=== PATIENT | male | born 1985 | race Caucasian/White ===

== ENCOUNTER 2016-06-25 17:10 | Emergency (ER) | payer OTHER ==
--- NOTE | 2016-06-25 17:44 | ED CLINICAL REPORT ---
Clinical Report - Physicians/Mid Levels [facility] [address] [place] [address] 06/25/2016 17:12 Patient: AFSHIN LUCIA Time Seen: 17:21. Arrived- By private vehicle. Historian- patient. HISTORY OF PRESENT ILLNESS Location of injuries- right knee. Chief Complaint: Right knee pain. The injury occurred many months ago. 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 Occurred at work. The patient complains of moderate pain. No blow to the head, neck pain, loss of consciousness or seizure. Not dazed. REVIEW OF SYSTEMS The patient complains of pain on weight bearing. No chest pain, difficulty breathing, headache, abdominal pain or urinary problems. PAST HISTORY Chronic right knee pain (has had MRI and ortho referral). Medications: TraMADol HCl Oral. Cyclobenzaprine HCl Oral. Allergies: Ibuprofen. Ketorolac. Methocarbamol. SOCIAL HISTORY Attends school. Is a local resident. ADDITIONAL NOTES The nursing notes have been reviewed. PHYSICAL EXAM Vital Signs: 06/25/2016 17:20 BP: 123/100. HR: 84. RR: 18. O2 saturation: 96%. Temp: 98.2 F. Appearance: Alert. Oriented X3. No acute distress. Eyes: EOM intact. CVS: Heart sounds normal. Pulses normal. Respiratory: Breath sounds normal. Chest nontender. Abdomen: No visible injury. Back: No tenderness. ROM normal. Skin: Skin intact. Skin warm and dry. Normal skin color. Normal skin turgor. Extremities: Right knee: mild tenderness located in the lateral joint line and lateral collateral ligament. Neurovascular intact distally. No ligamentous laxity present. No erythema, swelling or deformity. No limitation in ROM. Neuro: Oriented X 3. No motor deficit. No sensory deficit. PROGRESS AND PROCEDURES Course of Care: Has had MRI and has upcoming ortho appt in 3 days. CLINICAL IMPRESSION Tear of the right lateral meniscus (with possible tendon cyst / Clay's cyst). INSTRUCTIONS Apply ice. Wear elastic wrap as directed until better (knee splint). Elevate affected areas above chest level. You may walk and bear weight as tolerated. Do not work for three days. Warnings: CONTROLLED SUBSTANCE WARNINGS. GENERAL WARNINGS: Return or contact your physician immediately if your condition worsens or changes unexpectedly, if not improving as expected, or if other problems arise. Prescription Medications: Tramadol 50 mg tablets: take 1-2 orally every 6 hours as needed for pain. Dispense twenty (20). No refills. Flexeril 10 mg: Take 1 orally every 8 hours as needed for muscle spasm. Dispense twenty (20). No refills. Substitution is permissible. OTC Medications: Acetaminophen (available over the counter): take according to label instructions. Follow-up: Follow up with your doctor [facility] in about three days. Follow up with an orthopedic surgeon- as recommended by your primary care physician. (Electronically signed by Devaughn Scott DO 06/26/2016 7:25)
--- NOTE | 2016-06-25 17:44 | ED NURSING NOTES ---
Clinical Report - Nurses [facility] [address] [place] [address] 06/25/2016 17:12 Patient: AFSHIN LUCIA TRIAGE Triage time 17:21 Jun 25 2016. Acuity: LEVEL 4. Chief Complaint: (knee pain). --17:25 David Huang R.N. 17:20 06/25/16. BP: 123/100. HR: 84. RR: 18. O2 saturation: 96%. Temp: 98.2 F. Pain level now 8/10. --17:25 David Hunag R.N. Weight: 86.1 kg stated. Height/Length: 66 inches Per Patient. BMI: 30.7. --17:24 David Huang R.N. Allergies Methocarbamol. --17:23 David Huang R.N. Ketorolac. --17:23 David Huang R.N. Ibuprofen. --17:23 David Huang R.N. History Arrived by private vehicle. ( Pt states " I have 2 cysts on my R knee, today i have a lot of movement in my knee it is vibrating " Knee is intact pt is able ambulated, was wearing a knee brace prior to arrival). This started today. SOCIAL HX: Occasional alcohol use. No drug use. --17:25 David Huang R.N. Interventions ID and allergy band on patient. To treatment room. --17:25 David Huang R.N. PHYSICAL ASSESSMENT ( Pt reports pain to r knee no obvious injury no, bruising or swelling). GENERAL / NEURO / PSYCH: Alert. Oriented X 4. Appears in no acute distress. HEENT: Pupils equal, round and reactive to light. No facial asymmetry noted. Mucous membranes are pink. RESPIRATORY: Respirations not labored. Chest nontender. Breath sounds within normal limits. CVS: Capillary refill less than 2 seconds. Pulses within normal limits. GI / : Abdomen soft and nontender. EXTREMITIES: Pain with weight bearing. Normal gait. SKIN: Skin is warm and dry. --17:26 David Huang R.N. NURSING PROGRESS NOTES Oxygen administered. Monitoring of patient in place. Call light placed in reach. Side rails up x 1. Bed placed in lowest position. --17:26 David Huang R.N. DISPOSITION / DISCHARGE Departure time: 18:07 Jun 25 2016. No learning barriers present. Discharge instructions provided and reviewed with the patient. Reviewed medication(s) side effects information. Patient verbalized understanding. Written instructions provided in [place]. The patient was discharged by the physician. He was discharged home and accompanied by senior backup administrator. He left the Emergency Department ambulatory and via ambulance. Cell Builder driving. --18:07 David Huang R.N. 18:06 06/25/16. BP: 119/76. HR: 81. RR: 18. O2 saturation: 100%. Temp: 98.1 F. Pain level now 6/10. --18:07 David Huang R.N. Locked/Released at 06/30/2016 16:16 by David Huang R.N.
--- NOTE | 2016-06-25 17:44 | ED CLINICAL REPORT ---
Clinical Report - Physicians/Mid Levels [facility] [address] [place] [place] [address] 06/25/2016 17:12 Patient: AFSHIN LUCIA Time Seen: 17:21. Arrived- By private vehicle. Historian- patient. HISTORY OF PRESENT ILLNESS Location of injuries- right knee. Chief Complaint: Right knee pain. The injury occurred many months ago. 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 Occurred at work. The patient complains of moderate pain. No blow to the head, neck pain, loss of consciousness or seizure. Not dazed. REVIEW OF SYSTEMS The patient complains of pain on weight bearing. No chest pain, difficulty breathing, headache, abdominal pain or urinary problems. PAST HISTORY Chronic right knee pain (has had MRI and ortho referral). Medications: TraMADol HCl Oral. Cyclobenzaprine HCl Oral. Allergies: Ibuprofen. Ketorolac. Methocarbamol. SOCIAL HISTORY Attends school. Is a local resident. ADDITIONAL NOTES The nursing notes have been reviewed. PHYSICAL EXAM Vital Signs: 06/25/2016 17:20 BP: 123/100. HR: 84. RR: 18. O2 saturation: 96%. Temp: 98.2 F. Appearance: Alert. Oriented X3. No acute distress. Eyes: EOM intact. CVS: Heart sounds normal. Pulses normal. Respiratory: Breath sounds normal. Chest nontender. Abdomen: No visible injury. Back: No tenderness. ROM normal. Skin: Skin intact. Skin warm and dry. Normal skin color. Normal skin turgor. Extremities: Right knee: mild tenderness located in the lateral joint line and lateral collateral ligament. Neurovascular intact distally. No ligamentous laxity present. No erythema, swelling or deformity. No limitation in ROM. Neuro: Oriented X 3. No motor deficit. No sensory deficit. PROGRESS AND PROCEDURES Course of Care: Has had MRI and has upcoming ortho appt in 3 days. CLINICAL IMPRESSION Tear of the right lateral meniscus (with possible tendon cyst / Clay's cyst). INSTRUCTIONS Apply ice. Wear elastic wrap as directed until better (knee splint). Elevate affected areas above chest level. You may walk and bear weight as tolerated. Do not work for three days. Warnings: CONTROLLED SUBSTANCE WARNINGS. GENERAL WARNINGS: Return or contact your physician immediately if your condition worsens or changes unexpectedly, if not improving as expected, or if other problems arise. Prescription Medications: Tramadol 50 mg tablets: take 1-2 orally every 6 hours as needed for pain. Dispense twenty (20). No refills. Flexeril 10 mg: Take 1 orally every 8 hours as needed for muscle spasm. Dispense twenty (20). No refills. Substitution is permissible. OTC Medications: Acetaminophen (available over the counter): take according to label instructions. Follow-up: Follow up with your doctor [facility] in about three days. Follow up with an orthopedic surgeon- as recommended by your primary care physician. (Electronically signed by Devaughn Scott DO 06/26/2016 7:25)
--- NOTE | 2016-06-25 17:44 | ED NURSING NOTES ---
Clinical Report - Nurses [facility] [address] [place] [address] 06/25/2016 17:12 Patient: AFSHIN LUCIA TRIAGE Triage time 17:21 Jun 25 2016. Acuity: LEVEL 4. Chief Complaint: (knee pain). --17:25 David Huang R.N. 17:20 06/25/16. BP: 123/100. HR: 84. RR: 18. O2 saturation: 96%. Temp: 98.2 F. Pain level now 8/10. --17:25 David Huang R.N. Weight: 86.1 kg stated. Height/Length: 66 inches Per Patient. BMI: 30.7. --17:24 David Huang R.N. Allergies Methocarbamol. --17:23 David Huang R.N. Ketorolac. --17:23 David Huang R.N. Ibuprofen. --17:23 David Huang R.N. History Arrived by private vehicle. ( Pt states " I have 2 cysts on my R knee, today i have a lot of movement in my knee it is vibrating " Knee is intact pt is able ambulated, was wearing a knee brace prior to arrival). This started today. SOCIAL HX: Occasional alcohol use. No drug use. --17:25 David Huang R.N. Interventions ID and allergy band on patient. To treatment room. --17:25 David Huang R.N. PHYSICAL ASSESSMENT ( Pt reports pain to r knee no obvious injury no, bruising or swelling). GENERAL / NEURO / PSYCH: Alert. Oriented X 4. Appears in no acute distress. HEENT: Pupils equal, round and reactive to light. No facial asymmetry noted. Mucous membranes are pink. RESPIRATORY: Respirations not labored. Chest nontender. Breath sounds within normal limits. CVS: Capillary refill less than 2 seconds. Pulses within normal limits. GI / : Abdomen soft and nontender. EXTREMITIES: Pain with weight bearing. Normal gait. SKIN: Skin is warm and dry. --17:26 David Huang R.N. NURSING PROGRESS NOTES Oxygen administered. Monitoring of patient in place. Call light placed in reach. Side rails up x 1. Bed placed in lowest position. --17:26 David Huang R.N. DISPOSITION / DISCHARGE Departure time: 18:07 Jun 25 2016. No learning barriers present. Discharge instructions provided and reviewed with the patient. Reviewed medication(s) side effects information. Patient verbalized understanding. Written instructions provided in [place]. The patient was discharged by the physician. He was discharged home and accompanied by kiln burner. He left the Emergency Department ambulatory and via ambulance. Distillation Operator driving. --18:07 David Huang R.N. 18:06 06/25/16. BP: 119/76. HR: 81. RR: 18. O2 saturation: 100%. Temp: 98.1 F. Pain level now 6/10. --18:07 David Huang R.N. Locked/Released at 06/30/2016 16:16 by David Huang R.N.
--- NOTE | 2016-06-30 16:16 | ED DISCHARGE INSTRUCTIONS ---
Patient: AFSHIN LUCIA General Instructions [facility] VisitID: [id number] [address] [place] [address] 31y, M Registration Date/Time: 06/25/2016 Tear of the right lateral meniscus. INSTRUCTIONS Apply ice. Wear elastic wrap as directed until better (knee splint). Elevate affected areas above chest level. You may walk and bear weight as tolerated. Do not work for three days. Warnings: CONTROLLED SUBSTANCE WARNINGS. GENERAL WARNINGS: Return or contact your physician immediately if your condition worsens or changes unexpectedly, if not improving as expected, or if other problems arise. Prescription Medications: Tramadol 50 mg tablets: take 1-2 orally every 6 hours as needed for pain. Dispense twenty (20). No refills. Flexeril 10 mg: Take 1 orally every 8 hours as needed for muscle spasm. Dispense twenty (20). No refills. Substitution is permissible. OTC Medications: Acetaminophen (available over the counter): take according to label instructions. Follow-up: Follow up with your doctor [facility] in about three days. Follow up with an orthopedic surgeon- as recommended by your primary care physician. ADDITIONAL INFORMATION Knee Pain, Possible Torn Meniscus Themeniscusis a tough cartilage pad that cushions the inside of the knee joint. It serves as a shock absorber and spreads the weight of your body evenly across the knee joint. This prevents excess wear and tear to the bones of that joint. The most common causes of meniscal tears are due to injury (especially related to sports) and degenerative disease (as occurs with aging). A meniscus tear commonly occurs during a twisting injury when the knee is bent. This causes pain, swelling, reduced movement of the knee and difficulty walking. There may be popping, clicking, joint locking or inability to completely straighten the knee. Ligaments of the knee may also be injured. Initial diagnosis of a torn meniscus is by physical exam and x-rays. In the case of an acute injury, the knee may be too painful to examine fully. A more accurate exam can be performed after the initial swelling goes down. An MRI (magnetic image scan) may be ordered to make a final diagnosis. Initial treatment of a suspected meniscal injury is with ice and rest and preventing movement of the knee. A splint or Velcro knee immobilizer may be applied to protect the joint. Depending on the severity of the injury, surgery may be required. A cartilage injury may take 4-12 weeks to heal depending on the severity. Home Care: Stay off the injured leg as much as possible until you can walk on it without pain. If you have a lot of pain with walking, crutches or a walker may be prescribed. (These can be rented or purchased at many pharmacies and surgical or orthopedic supply stores). Follow your doctor's advice regarding when to begin bearing weight on that leg. Keep your leg elevated to reduce pain and swelling. When sleeping, place a pillow under the injured leg. When sitting, support the injured leg so it is level with your waist. This is very important during the first 48 hours. Apply an ice pack (ice cubes in a plastic bag, wrapped in a towel) over the injured area for 20 minutes every 1-2 hours the first day. You can place the ice pack directly over the splint. If a Velcro knee immobilizer was applied, you can open this to apply the ice pack directly to the knee. Continue with ice packs 3-4 times a day for the next two days, then as needed for the relief of pain and swelling. You may use acetaminophen (Tylenol) or ibuprofen (Motrin, Advil) to control pain, unless another pain medicine was prescribed. [NOTE: If you have chronic liver or kidney disease or ever had a stomach ulcer, talk with your doctor before using these medicines.] If you were given a splint, keep it completely dry at all times. Bathe with your splint out of the water, protected with a large plastic bag, rubber-banded at the top end. If a fiberglass splint gets wet, you can dry it with a hair-dryer. If you have a Velcro knee immobilizer, you can remove this to bathe, unless told otherwise. Check with your doctor before returning to sports or full work duties. Follow Up with your doctor, or as advised, within 1-2 weeks for another exam. Further testing may be required to assess the extent of your injury. [NOTE: If X-rays were taken, they will be reviewed by a radiologist. You will be notified of any new findings that may affect your care.] Get Prompt Medical Attention if any of the following occur: Toes or foot becomes swollen, cold, blue, numb or tingly Pain or swelling increases over the knee or calf Warmth or redness appears over the knee or calf Shortness of breath or chest pain Fever over 100.4F (38.0C) Sprain, Knee A sprain is an injury to the ligaments or capsule that holds a joint together. There are no broken bones. Most sprains take three to six weeks to heal. If the ligament is completely torn (severe sprain), it can take months to recover from. Most knee sprains are treated with a splint, knee immobilizer or elastic wrap for support. Severe sprains may require surgery. Home care The following guidelines will help you care for your injury at home: Stay off the injured leg as much as possible until you can walk on it without pain. If you have a lot of pain with walking, crutches or a walker may be prescribed. (These can be rented or purchased at many pharmacies and surgical or orthopedic supply stores). Follow your doctor's advice regarding when to begin bearing weight on that leg. Keep your leg elevated to reduce pain and swelling. When sleeping, place a pillow under the injured leg. When sitting, support the injured leg so it is level with your waist. This is very important during the first 48 hours. Apply an ice pack (ice cubes in a plastic bag, wrapped in a towel) over the injured area for 20 minutes every 12 hours the first day. You can place the ice pack directly over the splint. If a Velcro knee immobilizer was applied, you can open this to apply the ice pack directly to the knee. Continue with ice packs 34 times a day for the next two days, then as needed for the relief of pain and swelling. You may use acetaminophen or ibuprofen to control pain, unless another pain medicine was prescribed. If you have chronic liver or kidney disease or ever had a stomach ulcer or GI bleeding, talk with your doctor before using these medicines. If you were given a splint, keep it completely dry at all times. Bathe with your splint out of the water, protected with a large plastic bag, rubber-banded at the top end. If a fiberglass splint gets wet, you can dry it with a hair-dryer. If you have a Velcro knee immobilizer, you can remove this to bathe, unless told otherwise. Follow-up care Follow up with your doctor as advised. Any X-rays you had today dont show any broken bones, breaks, or fractures. Sometimes fractures dont show up on the first X-ray. Bruises and sprains can sometimes hurt as much as a fracture. These injuries can take time to heal completely. If your symptoms dont improve or they get worse, talk with your doctor. You may need a repeat X-ray. When to seek medical care Get prompt medical attention if any of the following occur: The plaster cast or splint becomes wet or soft The fiberglass cast or splint remains wet for more than 24 hours Pain or swelling increases Toes become cold, blue, numb or tingly Tramadol Hydrochloride Oral tablet What is this medicine? TRAMADOL (TRA ma dole) is a pain reliever. It is used to treat moderate to severe pain in adults. How should I use this medicine? Take this medicine by mouth with a full glass of water. Follow the directions on the prescription label. If the medicine upsets your stomach, take it with food or milk. Do not take more medicine than you are told to take. Talk to your studio manager regarding the use of this medicine in children. Special care may be needed. What side effects may I notice from receiving this medicine? Side effects that you should report to your doctor or health memory care program director as soon as possible: allergic reactions like skin rash, itching or hives, swelling of the face, lips, or tongue breathing difficulties, wheezing confusion itching light headedness or fainting spells redness, blistering, peeling or loosening of the skin, including inside the mouth seizures Side effects that usually do not require medical attention (report to your doctor or health memory care program director if they continue or are bothersome): constipation dizziness drowsiness headache nausea, vomiting What may interact with this medicine? Do not take this medicine with any of the following medications: MAOIs like Carbex, Eldepryl, Marplan, Nardil, and Parnate This medicine may also interact with the following medications: alcohol or medicines that contain alcohol antihistamines benzodiazepines bupropion carbamazepine or oxcarbazepine clozapine cyclobenzaprine digoxin furazolidone linezolid medicines for depression, anxiety, or psychotic disturbances medicines for migraine headache like almotriptan, eletriptan, frovatriptan, naratriptan, rizatriptan, sumatriptan, zolmitriptan medicines for pain like pentazocine, buprenorphine, butorphanol, meperidine, nalbuphine, and propoxyphene medicines for sleep muscle relaxants naltrexone phenobarbital phenothiazines like perphenazine, thioridazine, chlorpromazine, mesoridazine, fluphenazine, prochlorperazine, promazine, and trifluoperazine procarbazine warfarin What if I miss a dose? If you miss a dose, take it as soon as you can. If it is almost time for your next dose, take only that dose. Do not take double or extra doses. Where should I keep my medicine? Keep out of the reach of children. Store at room temperature between 15 and 30 degrees C (59 and 86 degrees F). Keep container tightly closed. Throw away any unused medicine after the expiration date. What should I tell my health care provider before I take this medicine? They need to know if you have any of these conditions: brain tumor depression drug abuse or addiction head injury if you frequently drink alcohol containing drinks kidney disease or trouble passing urine liver disease lung disease, asthma, or breathing problems seizures or epilepsy suicidal thoughts, plans, or attempt; a previous suicide attempt by you or a family member an unusual or allergic reaction to tramadol, codeine, other medicines, foods, dyes, or preservatives or trying to get breast-feeding What should I watch for while using this medicine? Tell your doctor or health memory care program director if your pain does not go away, if it gets worse, or if you have new or a different type of pain. You may develop tolerance to the medicine. Tolerance means that you will need a higher dose of the medicine for pain relief. Tolerance is normal and is expected if you take this medicine for a long time. Do not suddenly stop taking your medicine because you may develop a severe reaction. Your body becomes used to the medicine. This does NOT mean you are addicted. Addiction is a behavior related to getting and using a drug for a non-medical reason. If you have pain, you have a medical reason to take pain medicine. Your doctor will tell you how much medicine to take. If your doctor wants you to stop the medicine, the dose will be slowly lowered over time to avoid any side effects. You may get drowsy or dizzy. Do not drive, use machinery, or do anything that needs mental alertness until you know how this medicine affects you. Do not stand or sit up quickly, especially if you are an older patient. This reduces the risk of dizzy or fainting spells. Alcohol can increase or decrease the effects of this medicine. Avoid alcoholic drinks. You may have constipation. Try to have a bowel movement at least every 2 to 3 days. If you do not have a bowel movement for 3 days, call your doctor or health memory care program director. Your mouth may get dry. Chewing sugarless gum or sucking hard candy, and drinking plenty of water may help. Contact your doctor if the problem does not go away or is severe. Cyclobenzaprine Hydrochloride Oral tablet What is this medicine? CYCLOBENZAPRINE (rebecca mccormickkay JULIÁN johnson) is a muscle relaxer. It is used to treat muscle pain, spasms, and stiffness. How should I use this medicine? Take this medicine by mouth with a glass of water. Follow the directions on the prescription label. If this medicine upsets your stomach, take it with food or milk. Take your medicine at regular intervals. Do not take it more often than directed. Talk to your studio manager regarding the use of this medicine in children. Special care may be needed. What side effects may I notice from receiving this medicine? Side effects that you should report to your doctor or health memory care program director as soon as possible: allergic reactions like skin rash, itching or hives, swelling of the face, lips, or tongue chest pain fast heartbeat hallucinations seizures vomiting Side effects that usually do not require medical attention (report to your doctor or health memory care program director if they continue or are bothersome): headache What may interact with this medicine? Do not take this medicine with any of the following medications: cisapride droperidol flecainide grepafloxacin halofantrine levomethadyl MAOIs like Carbex, Eldepryl, Marplan, Nardil, and Parnate nilotinib pimozide probucol sertindole This medicine may also interact with the following medications: abarelix alcohol contrast dyes dolasetron guanethidine medicines for cancer medicines for depression, anxiety, or psychotic disturbances medicines to treat an irregular heartbeat medicines used for sleep or numbness during surgery or procedure methadone octreotide ondansetron palonosetron phenothiazines like chlorpromazine, mesoridazine, prochlorperazine, thioridazine some medicines for infection like alfuzosin, chloroquine, clarithromycin, levofloxacin, mefloquine, pentamidine, troleandomycin tramadol vardenafil What if I miss a dose? If you miss a dose, take it as soon as you can. If it is almost time for your next dose, take only that dose. Do not take double or extra doses. Where should I keep my medicine? Keep out of the reach of children. Store at room temperature between 15 and 30 degrees C (59 and 86 degrees F). Keep container tightly closed. Throw away any unused medicine after the expiration date. What should I tell my health care provider before I take this medicine? They need to know if you have any of these conditions: heart disease, irregular heartbeat, or previous heart attack liver disease thyroid problem an unusual or allergic reaction to cyclobenzaprine, tricyclic antidepressants, lactose, other medicines, foods, dyes, or preservatives or trying to get breast-feeding What should I watch for while using this medicine? Check with your doctor or health memory care program director if your condition does not improve within 1 to 3 weeks. You may get drowsy or dizzy when you first start taking the medicine or change doses. Do not drive, use machinery, or do anything that may be dangerous until you know how the medicine affects you. Stand or sit up slowly. Your mouth may get dry. Drinking water, chewing sugarless gum, or sucking on hard candy may help. Acetaminophen Oral tablet What is this medicine? ACETAMINOPHEN (a set a KANDICE cynthia fen) is a pain reliever. It is used to treat mild pain and fever. How should I use this medicine? Take this medicine by mouth with a glass of water. Follow the directions on the package or prescription label. Take your medicine at regular intervals. Do not take your medicine more often than directed. Talk to your studio manager regarding the use of this medicine in children. While this drug may be prescribed for children as young as 6 years of age for selected conditions, precautions do apply. What side effects may I notice from receiving this medicine? Side effects that you should report to your doctor or health memory care program director as soon as possible: allergic reactions like skin rash, itching or hives, swelling of the face, lips, or tongue breathing problems fever or sore throat redness, blistering, peeling or loosening of the skin, including inside the mouth trouble passing urine or change in the amount of urine unusual bleeding or bruising unusually weak or tired yellowing of the eyes or skin Side effects that usually do not require medical attention (report to your doctor or health memory care program director if they continue or are bothersome): headache nausea, stomach upset What may interact with this medicine? alcohol imatinib isoniazid other medicines with acetaminophen What if I miss a dose? If you miss a dose, take it as soon as you can. If it is almost time for your next dose, take only that dose. Do not take double or extra doses. Where should I keep my medicine? Keep out of reach of children. Store at room temperature between 20 and 25 degrees C (68 and 77 degrees F). Protect from moisture and heat. Throw away any unused medicine after the expiration date. What should I tell my health care provider before I take this medicine? They need to know if you have any of these conditions: if you frequently drink alcohol containing drinks liver disease an unusual or allergic reaction to acetaminophen, other medicines, foods, dyes or preservatives or trying to get breast-feeding What should I watch for while using this medicine? Tell your doctor or health memory care program director if the pain lasts more than 10 days (5 days for children), if it gets worse, or if there is a new or different kind of pain. Also, check with your doctor if a fever lasts for more than 3 days. Do not take other medicines that contain acetaminophen with this medicine. Always read labels carefully. If you have questions, ask your doctor or pharmacist. If you take too much acetaminophen get medical help right away. Too much acetaminophen can be very dangerous and cause liver damage. Even if you do not have symptoms, it is important to get help right away. You have been given the following additional information: Knee Pain, Meniscus Injury (Possible) Knee Sprain Tramadol Hydrochloride Oral tablet Cyclobenzaprine Hydrochloride Oral tablet Acetaminophen Oral tablet You may walk and bear weight as tolerated. Do not work for three days. (Electronically signed by Devaughn Scott DO 06/26/2016 7:25)
--- NOTE | 2016-06-30 16:16 | ED MAR SUMMARY ---
..... Medication Administration Record [facility] [address], [place] [id number] Patient: AFSHIN LUCIA Visit ID: [id number] 31y, M Weight: 86.1 kg Height/Length: 66 in BMI: 30.7 ALLERGIES: Ibuprofen, Ketorolac, Methocarbamol
--- NOTE | 2016-06-30 16:16 | ED MAR SUMMARY ---
..... Medication Administration Record [facility] [address], [place] [id number] Patient: AFSHIN LUCIA Visit ID: [id number] 31y, M Weight: 86.1 kg Height/Length: 66 in BMI: 30.7 ALLERGIES: Ibuprofen, Ketorolac, Methocarbamol
--- NOTE | 2016-06-30 16:16 | ED MED RECONCILIATION SUMMARY ---
Patient: AFSHIN LUCIA Medication Reconciliation Report [facility] VisitID: [id number] [address] [place] [address] 31y, M Registration Date/Time: 06/25/2016 Weight: 86.1 kg Height/Length: 66 in. BMI: 30.7 ALLERGIES: Ibuprofen, Ketorolac, Methocarbamol The patient's Home Medications are listed below: THE FOLLOWING MEDICATIONS NEED TO BE RECONCILED: Cyclobenzaprine HCl Oral TraMADol HCl Oral The source(s) of the original Home Medication information: Not obtained. The following Medications were given to the patient in the Emergency Department: None. The following Medications were prescribed to the patient: Acetaminophen (available over the counter): take according to label instructions. -- Devaughn Scott DO Tramadol 50 mg tablets: take 1-2 orally every 6 hours as needed for pain. Dispense twenty (20). No refills. -- Devaughn Scott DO Flexeril 10 mg: Take 1 orally every 8 hours as needed for muscle spasm. Dispense twenty (20). No refills. Substitution is permissible. -- Devaughn Scott DO
--- NOTE | 2016-06-30 16:16 | ED MED RECONCILIATION SUMMARY ---
Patient: AFSHIN LUCIA Medication Reconciliation Report [facility] VisitID: [id number] [address] [place] [address] 31y, M Registration Date/Time: 06/25/2016 Weight: 86.1 kg Height/Length: 66 in. BMI: 30.7 ALLERGIES: Ibuprofen, Ketorolac, Methocarbamol The patient's Home Medications are listed below: THE FOLLOWING MEDICATIONS NEED TO BE RECONCILED: Cyclobenzaprine HCl Oral TraMADol HCl Oral The source(s) of the original Home Medication information: Not obtained. The following Medications were given to the patient in the Emergency Department: None. The following Medications were prescribed to the patient: Acetaminophen (available over the counter): take according to label instructions. -- Devaughn Scott DO Tramadol 50 mg tablets: take 1-2 orally every 6 hours as needed for pain. Dispense twenty (20). No refills. -- Devaughn Scott DO Flexeril 10 mg: Take 1 orally every 8 hours as needed for muscle spasm. Dispense twenty (20). No refills. Substitution is permissible. -- Devaughn Scott DO
== END 2016-06-25 18:04 | disposition home or self-care (01) ==
LOC: ED SRH 17:10
DX: S83.281A Other tear of lateral meniscus, current injury, right knee, initial encounter (principal); X58.XXXA Exposure to other specified factors, initial encounter; Y93.9 Activity, unspecified; Y92.9 Unspecified place or not applicable; Y99.8 Other external cause status; Z88.8 Allergy status to other drugs, medicaments and biological substances

== ENCOUNTER 2016-07-28 16:35 | Emergency (ER) | payer OTHER ==
--- NOTE | 2016-07-28 17:16 | ED CLINICAL REPORT ---
Clinical Report - Physicians/Mid Levels [facility] [address] [place] [address] 07/28/2016 16:36 Patient: AFSHIN LUCIA Time Seen: 16:38; initial patient contact. Arrived- By private vehicle. Historian- patient. HISTORY OF PRESENT ILLNESS Chief Complaint: Injury to right leg. The injury happened just prior to arrival[place] The patient sustained a laceration from broken glass (slipped while hiking). Patient is experiencing mild pain. Patient denies injury to the head or neck. REVIEW OF SYSTEMS The patient sustained a laceration. No swelling, tingling or suspected foreign body. All systems otherwise negative, except as recorded above. PAST HISTORY ( Knee Injury. PTSD. SURGERIES: Back Surgery. Wrist surgery.). Tetanus immunization status is up-to-date. ADDITIONAL NOTES The nursing notes have been reviewed with agreement regarding the chief complaint, PMH and patient medications and allergies. PHYSICAL EXAM Vital Signs: 07/28/2016 16:43 BP: 182/103. HR: 95. RR: 18. O2 saturation: 98%. Pain level now: 8/10. Have been reviewed. Hypertensive. Heart rate normal. Respiratory rate normal. Temperature normal. Oxygen saturation normal. Appearance: Alert. Oriented X3. Anxious. Skin: Skin warm and dry. Extremities: Right leg: mild tenderness and multiple small abrasions. Neurovascular intact distally. (No active bleeding). Extremities otherwise negative. Neuro, Vascular and Tendons: Vascular status intact. Sensation intact. Motor intact. Tendon function intact. Gait: Normal gait. Neuro: Oriented X 3. No motor deficit. No sensory deficit. PROGRESS AND PROCEDURES Disposition: Discharged home in good and improved condition. Condition: good. CLINICAL IMPRESSION Multiple superficial abrasions to the right lower leg.Treatment of abrasion not delayed. No infection or abrasion with foreign body present. INSTRUCTIONS Protect wound and keep wound area clean. Change dressing twice daily. You may wash wounds briefly, then dry. Apply bacitracin twice daily. Your Current Medications: CONTINUE TAKING THE FOLLOWING MEDICATIONS: Gabapentin Oral : 500 mg 2x a day, prn. Tylenol Oral. Valium Oral : 5 mg daily, prn. Prescription Medications: Zofran (orally disintegrating tablets) 4 mg: take 1 orally every 6 hours as needed for nausea and vomiting. Dispense ten (10). No refill. Substitution is permissible. Follow-up: Follow up with your doctor in about two days if not better. Call for an appointment. Screening today revealed the patient's blood pressure to be in the hypertensive range. The patient should follow up with a primary care provider for blood pressure management. (Electronically signed by Reji Johnston Dr. 07/28/2016 17:26)
--- NOTE | 2016-07-28 17:16 | ED NURSING NOTES ---
Clinical Report - Nurses [facility] [address] [place] [address] 07/28/2016 16:36 Patient: AFSHIN LUCIA TRIAGE Triage time 16:43. Acuity: LEVEL 4. Chief Complaint: INJURY TO THE RIGHT LEG. Alert. SEPSIS SCREEN: Sepsis Screen. Negative (no infection suspected/documented). --16:49 Adilene Goyal R.N. 16:43 07/28/16. BP: 182/103. HR: 95. RR: 18. O2 saturation: 98%. Pain level now: 12/20. --16:49 Adilene Goyal R.N. Weight: 81.6 kg stated. Height/Length: 66 inches Per Patient. BMI: 29. --16:43 Adilene Goyal R.N. Medications Gabapentin Oral 500 mg , 2x a day as needed. Tylenol Oral. --16:48 Adilene Goyal R.N. Valium Oral 5 mg, daily as needed. --16:48 Adilene Goyal R.N. Allergies Ketorolac. --16:48 Adilene Goyal R.N. NSAIDs. --16:49 Adilene Goyal R.N. Methocarbamol. --16:49 Adilene Goyal R.N. History Arrived by private vehicle. Historian: patient. ( Pt was [place] in [place], fell onto some glass). The patient sustained a laceration from a broken glass. PAST MEDICAL HX: Negative. Tetanus status: up-to-date. SOCIAL HX: Never smoker. No alcohol use or drug use. NUTRITIONAL RISK ASSESSMENT: The nutritional risk assessment revealed no deficiencies. FUNCTIONAL ASSESSMENT: Functional assessment: no impairments noted. LEARNING NEEDS ASSESSMENT: The learning needs assessment revealed no barriers. --16:49 Adilene Goyal R.N. PROBLEMS: Knee Injury. --16:45 Adilene Goyal R.N. PTSD. --16:46 Adilene Goyal R.N. ADDITIONAL SURGERIES: Back Surgery. Wrist surgery. --16:45 Adilene Goyal R.N. Interventions ID band on patient. To room. --16:49 Adilene Goyal R.N. PHYSICAL ASSESSMENT 16:50 07/28/16. SKIN: The patient has an small superficial abrasion on the right leg. --16:50 Adilene Goyal R.N. NURSING PROGRESS NOTES 16:50 07/28/16. Patient identifiers checked. Call light placed in reach. Side rails up. Bed placed in lowest position. Patient ready for evaluation- chart flagged. --16:50 Adilene Goyal R.N. 16:52 07/28/2016 Zofran ODT (Ondansetron) PO 4 mg given. Allergies verified and confirmed 5 rights. --16:52 Adilene Goyal R.N. 17:15. Applied sterile dressing consisting of 4x4 gauze, following the application of antibiotic ointment (bacitracin). Secured with tape. --17:25 Adilene Goyal R.N. DISPOSITION / DISCHARGE Departure time: 172. Condition at departure: improved. No learning barriers present. Discharge instructions provided and reviewed with the patient. Reviewed medication(s) information. Reviewed wound care instructions. Reviewed referrals. Patient verbalized understanding. Written instructions provided. The patient was discharged home. He left the Emergency Department ambulatory and via private vehicle. --17:27 Adilene Goyal R.N. 17:25 07/28/16. BP: 143/112. HR: 92. RR: 18. O2 saturation: 99%. Temp: 98.7 F. Pain level now: 07/20. --17:27 Adilene Goyal R.N. 17:22. ( BP was ok per Dr. Johnston, for discharge. Pt asking for "something stronger for pain, like Tylenol #3", was instructed to take Tylenol OTC.). --17:31 Adilene Goyal R.N. Locked/Released at 07/28/2016 17:31 by Adilene Goyal R.N.
--- NOTE | 2016-07-28 17:16 | ED ORDER SUMMARY ---
..... Patient: AFSHIN LUCIA OrderSheet [facility] VisitID: [id number] [address] [place] [address] 31y, M Registration Date/Time: 07/28/2016 ORDER SHEET Weight: 81.6 kg (stated) Allergies: Ketorolac, NSAIDs, Methocarbamol GENERAL ORDERS: MEDICATION ORDERS: Zofran ODT PO 4 mg (NOW) (16:52 07/28/2016 Rubens R.Rupali verbal order read back to Faustino Chance) (16:52 Rubens R.N.) IV FLUIDS: ORDER SHEET NOTES: [Electronically signed by Reji Johnston Dr. (17:26 07/28/2016)] [Electronically signed by Adilene Goyal R.N. (17:07/28/2016)] [Electronically locked/signed by Adilene Goyal R.N. (17:07/28/2016)]
--- NOTE | 2016-07-28 17:16 | ED NURSING NOTES ---
Clinical Report - Nurses [facility] [address] [place] [address] 07/28/2016 16:36 Patient: AFSHIN LUCIA TRIAGE Triage time 16:43. Acuity: LEVEL 4. Chief Complaint: INJURY TO THE RIGHT LEG. Alert. SEPSIS SCREEN: Sepsis Screen. Negative (no infection suspected/documented). --16:49 Adilene Goyal R.N. 16:43 07/28/16. BP: 182/103. HR: 95. RR: 18. O2 saturation: 98%. Pain level now: 12/20. --16:49 Adilene Goyal R.N. Weight: 81.6 kg stated. Height/Length: 66 inches Per Patient. BMI: 29. --16:43 Adilene Goyal R.N. Medications Gabapentin Oral 500 mg , 2x a day as needed. Tylenol Oral. --16:48 Adilene Goyal R.N. Valium Oral 5 mg, daily as needed. --16:48 Adilene Goyal R.N. Allergies Ketorolac. --16:48 Adilene Goyal R.N. NSAIDs. --16:49 Adilene Goyal R.N. Methocarbamol. --16:49 Adilene Goyal R.N. History Arrived by private vehicle. Historian: patient. ( Pt was [place] in [place], fell onto some glass). The patient sustained a laceration from a broken glass. PAST MEDICAL HX: Negative. Tetanus status: up-to-date. SOCIAL HX: Never smoker. No alcohol use or drug use. NUTRITIONAL RISK ASSESSMENT: The nutritional risk assessment revealed no deficiencies. FUNCTIONAL ASSESSMENT: Functional assessment: no impairments noted. LEARNING NEEDS ASSESSMENT: The learning needs assessment revealed no barriers. --16:49 Adilene Goyal R.N. PROBLEMS: Knee Injury. --16:45 Adilene Goyal R.N. PTSD. --16:46 Adilene Goyal R.N. ADDITIONAL SURGERIES: Back Surgery. Wrist surgery. --16:45 Adilene Goyal R.N. Interventions ID band on patient. To room. --16:49 Adilene Goyal R.N. PHYSICAL ASSESSMENT 16:50 07/28/16. SKIN: The patient has an small superficial abrasion on the right leg. --16:50 Adilene Goyal R.N. NURSING PROGRESS NOTES 16:50 07/28/16. Patient identifiers checked. Call light placed in reach. Side rails up. Bed placed in lowest position. Patient ready for evaluation- chart flagged. --16:50 Adilene Goyal R.N. 16:52 07/28/2016 Zofran ODT (Ondansetron) PO 4 mg given. Allergies verified and confirmed 5 rights. --16:52 Adilene Goyal R.N. 17:15. Applied sterile dressing consisting of 4x4 gauze, following the application of antibiotic ointment (bacitracin). Secured with tape. --17:25 Adilene Goyal R.N. DISPOSITION / DISCHARGE Departure time: 172. Condition at departure: improved. No learning barriers present. Discharge instructions provided and reviewed with the patient. Reviewed medication(s) information. Reviewed wound care instructions. Reviewed referrals. Patient verbalized understanding. Written instructions provided. The patient was discharged home. He left the Emergency Department ambulatory and via private vehicle. --17:27 Adilene Goyal R.N. 17:25 07/28/16. BP: 143/112. HR: 92. RR: 18. O2 saturation: 99%. Temp: 98.7 F. Pain level now: 07/20. --17:27 Adilene Goyal R.N. 17:22. ( BP was ok per Dr. Johnston, for discharge. Pt asking for "something stronger for pain, like Tylenol #3", was instructed to take Tylenol OTC.). --17:31 Adilene Goyal R.N. Locked/Released at 07/28/2016 17:31 by Adilene Goyal R.N.
--- NOTE | 2016-07-28 17:16 | ED CLINICAL REPORT ---
Clinical Report - Physicians/Mid Levels [facility] [address] [place] [place] [address] 07/28/2016 16:36 Patient: AFSHIN LUCIA Time Seen: 16:38; initial patient contact. Arrived- By private vehicle. Historian- patient. HISTORY OF PRESENT ILLNESS Chief Complaint: Injury to right leg. The injury happened just prior to arrival. [place] The patient sustained a laceration from broken glass (slipped while hiking). Patient is experiencing mild pain. Patient denies injury to the head or neck. REVIEW OF SYSTEMS The patient sustained a laceration. No swelling, tingling or suspected foreign body. All systems otherwise negative, except as recorded above. PAST HISTORY ( Knee Injury. PTSD. SURGERIES: Back Surgery. Wrist surgery.). Tetanus immunization status is up-to-date. ADDITIONAL NOTES The nursing notes have been reviewed with agreement regarding the chief complaint, PMH and patient medications and allergies. PHYSICAL EXAM Vital Signs: 07/28/2016 16:43 BP: 182/103. HR: 95. RR: 18. O2 saturation: 98%. Pain level now: 8/10. Have been reviewed. Hypertensive. Heart rate normal. Respiratory rate normal. Temperature normal. Oxygen saturation normal. Appearance: Alert. Oriented X3. Anxious. Skin: Skin warm and dry. Extremities: Right leg: mild tenderness and multiple small abrasions. Neurovascular intact distally. (No active bleeding). Extremities otherwise negative. Neuro, Vascular and Tendons: Vascular status intact. Sensation intact. Motor intact. Tendon function intact. Gait: Normal gait. Neuro: Oriented X 3. No motor deficit. No sensory deficit. PROGRESS AND PROCEDURES Disposition: Discharged home in good and improved condition. Condition: good. CLINICAL IMPRESSION Multiple superficial abrasions to the right lower leg.Treatment of abrasion not delayed. No infection or abrasion with foreign body present. INSTRUCTIONS Protect wound and keep wound area clean. Change dressing twice daily. You may wash wounds briefly, then dry. Apply bacitracin twice daily. Your Current Medications: CONTINUE TAKING THE FOLLOWING MEDICATIONS: Gabapentin Oral : 500 mg 2x a day, prn. Tylenol Oral. Valium Oral : 5 mg daily, prn. Prescription Medications: Zofran (orally disintegrating tablets) 4 mg: take 1 orally every 6 hours as needed for nausea and vomiting. Dispense ten (10). No refill. Substitution is permissible. Follow-up: Follow up with your doctor in about two days if not better. Call for an appointment. Screening today revealed the patient's blood pressure to be in the hypertensive range. The patient should follow up with a primary care provider for blood pressure management. (Electronically signed by Reji Johnston Dr. 07/28/2016 17:26)
--- NOTE | 2016-07-28 17:16 | ED ORDER SUMMARY ---
..... Patient: AFSHIN LUCIA OrderSheet [facility] VisitID: [id number] [address] [place] [address] 31y, M Registration Date/Time: 07/28/2016 ORDER SHEET Weight: 81.6 kg (stated) Allergies: Ketorolac, NSAIDs, Methocarbamol GENERAL ORDERS: MEDICATION ORDERS: Zofran ODT PO 4 mg (NOW) (16:52 07/28/2016 Rubens R.Rupali verbal order read back to Faustino Chance) (16:52 Rubens R.N.) IV FLUIDS: ORDER SHEET NOTES: [Electronically signed by Reji Johnston Dr. (17:26 07/28/2016)] [Electronically signed by Adilene Goyal R.N. (17:07/28/2016)] [Electronically locked/signed by Adilene Goyal R.N. (17:07/28/2016)]
--- NOTE | 2016-07-28 17:32 | ED DISCHARGE INSTRUCTIONS ---
Patient: AFSHIN LUCIA General Instructions [facility] VisitID: [id number] [place] [address] 31y, M Registration Date/Time: 07/28/2016 Multiple superficial abrasions to the right lower leg.Treatment of abrasion not delayed. No infection or abrasion with foreign body present. INSTRUCTIONS Protect wound and keep wound area clean. Change dressing twice daily. You may wash wounds briefly, then dry. Apply bacitracin twice daily. Your Current Medications: CONTINUE TAKING THE FOLLOWING MEDICATIONS: Gabapentin Oral : 500 mg 2x a day, prn. Tylenol Oral. Valium Oral : 5 mg daily, prn. Prescription Medications: Zofran (orally disintegrating tablets) 4 mg: take 1 orally every 6 hours as needed for nausea and vomiting. Dispense ten (10). No refill. Substitution is permissible. Follow-up: Follow up with your doctor in about two days if not better. Call for an appointment. Screening today revealed the patient's blood pressure to be in the hypertensive range. The patient should follow up with a primary care provider for blood pressure management. ADDITIONAL INFORMATION Abrasions Abrasions are skin scrapes. Their treatment depends on how large and deep the abrasion is. Home Care: If you were given a bandage, change it once a day. If your bandage sticks to the wound, soak it in warm water until it loosens. Wash the area with soap and water to remove all the cream/ointment. You may do this in a sink, under a tub faucet or shower. Rinse off the soap and pat dry with a clean towel. Reapply cream/ointment according to your doctor's instructions. This will prevent infection and help prevent the bandage from sticking. Cover the wound with a fresh non-stick bandage (Telfa). Repeat steps 1 to 4 daily, or as directed by your doctor. If the bandage becomes wet or dirty, change it as soon as possible. You may use acetaminophen (Tylenol) or ibuprofen (Motrin, Advil) to control pain, unless another pain medicine was prescribed. [ NOTE : If you have chronic liver or kidney disease or ever had a stomach ulcer or GI bleeding, talk with your doctor before using these medicines.] Do not use ibuprofen in children under six months of age. Follow Up with your physician or this facility as directed by our staff. Most skin wounds heal within ten days. However, an infection may occur despite proper treatment. Therefore, look for the early signs of infection listed below. Get Prompt Medical Attention if any of the following occur: Increasing pain in the wound Increasing redness or swelling Pus coming from the wound Fever of 100.4F (38C) or higher, or as directed by your healthcare provider Bandage Change If the bandage becomes wet or dirty, replace it. Otherwise, leave it in place for the first 24 hours. Then once a day: After removing the bandage, wash the area with soap and water. Use a wet cotton swab to loosen and remove any blood or crust that forms on the wound. After cleaning, apply a thin layer of antibiotic ointment or cream. Reapply the bandage. You may shower as usual after the first 24 hours. If the bandage is on an arm or leg, cover it with a plastic bag rubber banded at both ends before showering. No tub baths or swimming until the bandage is removed and the wound healed (at least 7 days). Abrasions Abrasions are skin scrapes. Their treatment depends on how large and deep the abrasion is. Home Care: If you were given a bandage, change it once a day. If your bandage sticks to the wound, soak it in warm water until it loosens. Wash the area with soap and water to remove all the cream/ointment. You may do this in a sink, under a tub faucet or shower. Rinse off the soap and pat dry with a clean towel. Reapply cream/ointment according to your doctor's instructions. This will prevent infection and help prevent the bandage from sticking. Cover the wound with a fresh non-stick bandage (Telfa). Repeat steps 1 to 4 daily, or as directed by your doctor. If the bandage becomes wet or dirty, change it as soon as possible. You may use acetaminophen (Tylenol) or ibuprofen (Motrin, Advil) to control pain, unless another pain medicine was prescribed. [ NOTE : If you have chronic liver or kidney disease or ever had a stomach ulcer or GI bleeding, talk with your doctor before using these medicines.] Do not use ibuprofen in children under six months of age. Follow Up with your physician or this facility as directed by our staff. Most skin wounds heal within ten days. However, an infection may occur despite proper treatment. Therefore, look for the early signs of infection listed below. Get Prompt Medical Attention if any of the following occur: Increasing pain in the wound Increasing redness or swelling Pus coming from the wound Fever of 100.4F (38C) or higher, or as directed by your healthcare provider Ondansetron Oral disintegrating tablet What is this medicine? ONDANSETRON (on KIM se norma) is used to treat nausea and vomiting caused by chemotherapy. It is also used to prevent or treat nausea and vomiting after surgery. How should I use this medicine? These tablets are made to dissolve in the mouth. Do not try to push the tablet through the foil backing. With dry hands, peel away the foil backing and gently remove the tablet. Place the tablet in the mouth and allow it to dissolve, then swallow. While you may take these tablets with water, it is not necessary to do so. Talk to your food assembler regarding the use of this medicine in children. Special care may be needed. What side effects may I notice from receiving this medicine? Side effects that you should report to your doctor or health acute care registered nurse as soon as possible: allergic reactions like skin rash, itching or hives, swelling of the face, lips, or tongue breathing problems dizziness fast or irregular heartbeat feeling faint or lightheaded, falls fever and chills swelling of the hands and feet tightness in the chest Side effects that usually do not require medical attention (report to your doctor or health acute care registered nurse if they continue or are bothersome): constipation or diarrhea headache What may interact with this medicine? Do not take this medicine with any of the following medications: -apomorphine -cisapride -dofetilide -dronedarone -pimozide -thioridazine -ziprasidone This medicine may also interact with the following medications: -carbamazepine -phenytoin -rifampicin -tramadol -other medicines that prolong the QT interval (cause an abnormal heart rhythm) What if I miss a dose? If you miss a dose, take it as soon as you can. If it is almost time for your next dose, take only that dose. Do not take double or extra doses. Where should I keep my medicine? Keep out of the reach of children. Store between 2 and 30 degrees C (36 and 86 degrees F). Throw away any unused medicine after the expiration date. What should I tell my health care provider before I take this medicine? They need to know if you have any of these conditions: heart disease history of irregular heartbeat liver disease low levels of magnesium or potassium in the blood an unusual or allergic reaction to ondansetron, granisetron, other medicines, foods, dyes, or preservatives or trying to get breast-feeding What should I watch for while using this medicine? Check with your doctor or health acute care registered nurse as soon as you can if you have any sign of an allergic reaction. You have been given the following additional information: Abrasion Dressing Change Abrasion Ondansetron Oral disintegrating tablet (Electronically signed by Reji Johnston Dr. 07/28/2016 17:26)
--- NOTE | 2016-07-28 17:32 | ED DISCHARGE INSTRUCTIONS ---
Patient: AFSHIN LUCIA General Instructions [facility] VisitID: [id number] [place] [address] 31y, M Registration Date/Time: 07/28/2016 Multiple superficial abrasions to the right lower leg.Treatment of abrasion not delayed. No infection or abrasion with foreign body present. INSTRUCTIONS Protect wound and keep wound area clean. Change dressing twice daily. You may wash wounds briefly, then dry. Apply bacitracin twice daily. Your Current Medications: CONTINUE TAKING THE FOLLOWING MEDICATIONS: Gabapentin Oral : 500 mg 2x a day, prn. Tylenol Oral. Valium Oral : 5 mg daily, prn. Prescription Medications: Zofran (orally disintegrating tablets) 4 mg: take 1 orally every 6 hours as needed for nausea and vomiting. Dispense ten (10). No refill. Substitution is permissible. Follow-up: Follow up with your doctor in about two days if not better. Call for an appointment. Screening today revealed the patient's blood pressure to be in the hypertensive range. The patient should follow up with a primary care provider for blood pressure management. ADDITIONAL INFORMATION Abrasions Abrasions are skin scrapes. Their treatment depends on how large and deep the abrasion is. Home Care: If you were given a bandage, change it once a day. If your bandage sticks to the wound, soak it in warm water until it loosens. Wash the area with soap and water to remove all the cream/ointment. You may do this in a sink, under a tub faucet or shower. Rinse off the soap and pat dry with a clean towel. Reapply cream/ointment according to your doctor's instructions. This will prevent infection and help prevent the bandage from sticking. Cover the wound with a fresh non-stick bandage (Telfa). Repeat steps 1 to 4 daily, or as directed by your doctor. If the bandage becomes wet or dirty, change it as soon as possible. You may use acetaminophen (Tylenol) or ibuprofen (Motrin, Advil) to control pain, unless another pain medicine was prescribed. [ NOTE : If you have chronic liver or kidney disease or ever had a stomach ulcer or GI bleeding, talk with your doctor before using these medicines.] Do not use ibuprofen in children under six months of age. Follow Up with your physician or this facility as directed by our staff. Most skin wounds heal within ten days. However, an infection may occur despite proper treatment. Therefore, look for the early signs of infection listed below. Get Prompt Medical Attention if any of the following occur: Increasing pain in the wound Increasing redness or swelling Pus coming from the wound Fever of 100.4F (38C) or higher, or as directed by your healthcare provider Bandage Change If the bandage becomes wet or dirty, replace it. Otherwise, leave it in place for the first 24 hours. Then once a day: After removing the bandage, wash the area with soap and water. Use a wet cotton swab to loosen and remove any blood or crust that forms on the wound. After cleaning, apply a thin layer of antibiotic ointment or cream. Reapply the bandage. You may shower as usual after the first 24 hours. If the bandage is on an arm or leg, cover it with a plastic bag rubber banded at both ends before showering. No tub baths or swimming until the bandage is removed and the wound healed (at least 7 days). Abrasions Abrasions are skin scrapes. Their treatment depends on how large and deep the abrasion is. Home Care: If you were given a bandage, change it once a day. If your bandage sticks to the wound, soak it in warm water until it loosens. Wash the area with soap and water to remove all the cream/ointment. You may do this in a sink, under a tub faucet or shower. Rinse off the soap and pat dry with a clean towel. Reapply cream/ointment according to your doctor's instructions. This will prevent infection and help prevent the bandage from sticking. Cover the wound with a fresh non-stick bandage (Telfa). Repeat steps 1 to 4 daily, or as directed by your doctor. If the bandage becomes wet or dirty, change it as soon as possible. You may use acetaminophen (Tylenol) or ibuprofen (Motrin, Advil) to control pain, unless another pain medicine was prescribed. [ NOTE : If you have chronic liver or kidney disease or ever had a stomach ulcer or GI bleeding, talk with your doctor before using these medicines.] Do not use ibuprofen in children under six months of age. Follow Up with your physician or this facility as directed by our staff. Most skin wounds heal within ten days. However, an infection may occur despite proper treatment. Therefore, look for the early signs of infection listed below. Get Prompt Medical Attention if any of the following occur: Increasing pain in the wound Increasing redness or swelling Pus coming from the wound Fever of 100.4F (38C) or higher, or as directed by your healthcare provider Ondansetron Oral disintegrating tablet What is this medicine? ONDANSETRON (on KIM se norma) is used to treat nausea and vomiting caused by chemotherapy. It is also used to prevent or treat nausea and vomiting after surgery. How should I use this medicine? These tablets are made to dissolve in the mouth. Do not try to push the tablet through the foil backing. With dry hands, peel away the foil backing and gently remove the tablet. Place the tablet in the mouth and allow it to dissolve, then swallow. While you may take these tablets with water, it is not necessary to do so. Talk to your party host regarding the use of this medicine in children. Special care may be needed. What side effects may I notice from receiving this medicine? Side effects that you should report to your doctor or health caretaker as soon as possible: allergic reactions like skin rash, itching or hives, swelling of the face, lips, or tongue breathing problems dizziness fast or irregular heartbeat feeling faint or lightheaded, falls fever and chills swelling of the hands and feet tightness in the chest Side effects that usually do not require medical attention (report to your doctor or health caretaker if they continue or are bothersome): constipation or diarrhea headache What may interact with this medicine? Do not take this medicine with any of the following medications: -apomorphine -cisapride -dofetilide -dronedarone -pimozide -thioridazine -ziprasidone This medicine may also interact with the following medications: -carbamazepine -phenytoin -rifampicin -tramadol -other medicines that prolong the QT interval (cause an abnormal heart rhythm) What if I miss a dose? If you miss a dose, take it as soon as you can. If it is almost time for your next dose, take only that dose. Do not take double or extra doses. Where should I keep my medicine? Keep out of the reach of children. Store between 2 and 30 degrees C (36 and 86 degrees F). Throw away any unused medicine after the expiration date. What should I tell my health care provider before I take this medicine? They need to know if you have any of these conditions: heart disease history of irregular heartbeat liver disease low levels of magnesium or potassium in the blood an unusual or allergic reaction to ondansetron, granisetron, other medicines, foods, dyes, or preservatives or trying to get breast-feeding What should I watch for while using this medicine? Check with your doctor or health caretaker as soon as you can if you have any sign of an allergic reaction. You have been given the following additional information: Abrasion Dressing Change Abrasion Ondansetron Oral disintegrating tablet (Electronically signed by Reji Johnston Dr. 07/28/2016 17:26)
--- NOTE | 2016-07-28 17:32 | ED MED RECONCILIATION SUMMARY ---
Patient: AFSHIN LUCIA Medication Reconciliation Report [facility] VisitID: [id number] [address] [place] [address] 31y, M Registration Date/Time: 07/28/2016 Weight: 81.6 kg Height/Length: 66 in. BMI: 29.0 ALLERGIES: Ketorolac, Methocarbamol, NSAIDs The patient's Home Medications are listed below: CONTINUE TAKING THE FOLLOWING MEDICATIONS: Gabapentin Oral 500 mg , 2x a day Tylenol Oral Valium Oral 5 mg, daily The source(s) of the original Home Medication information: Not obtained. The following Medications were given to the patient in the Emergency Department: Zofran ODT [PO] PO 4 mg, administered: 07/28/2016 4:52:00 PM The following Medications were prescribed to the patient: Zofran (orally disintegrating tablets) 4 mg: take 1 orally every 6 hours as needed for nausea and vomiting. Dispense ten (10). No refill. Substitution is permissible. -- Reji Johnston Dr.
--- NOTE | 2016-07-28 17:32 | ED MAR SUMMARY ---
..... Medication Administration Record [facility] [address] [place] [address] Patient: AFSHIN LUCIA Visit ID: [id number] 31y, M Weight: 81.6 kg Height/Length: 66 in BMI: 29 ALLERGIES: Methocarbamol, NSAIDs, Ketorolac Given 16:52 07/28/2016 Adilene Goyal RReddNRedd Medication Administered: ZOFRAN ODT [PO] (ONDANSETRON), Dose: 4 mg PO. Medication Ordered: Zofran ODT PO 4 mg (NOW).
--- NOTE | 2016-07-28 17:32 | ED MAR SUMMARY ---
..... Medication Administration Record [facility] [address] [place] [address] Patient: AFSHIN LUCIA Visit ID: [id number] 31y, M Weight: 81.6 kg Height/Length: 66 in BMI: 29 ALLERGIES: Methocarbamol, NSAIDs, Ketorolac Given 16:52 07/28/2016 Adilene Goyal RReddNRedd Medication Administered: ZOFRAN ODT [PO] (ONDANSETRON), Dose: 4 mg PO. Medication Ordered: Zofran ODT PO 4 mg (NOW).
--- NOTE | 2016-07-28 17:32 | ED MED RECONCILIATION SUMMARY ---
Patient: AFSHIN LUCIA Medication Reconciliation Report [facility] VisitID: [id number] [address] [place] [address] 31y, M Registration Date/Time: 07/28/2016 Weight: 81.6 kg Height/Length: 66 in. BMI: 29.0 ALLERGIES: Ketorolac, Methocarbamol, NSAIDs The patient's Home Medications are listed below: CONTINUE TAKING THE FOLLOWING MEDICATIONS: Gabapentin Oral 500 mg , 2x a day Tylenol Oral Valium Oral 5 mg, daily The source(s) of the original Home Medication information: Not obtained. The following Medications were given to the patient in the Emergency Department: Zofran ODT [PO] PO 4 mg, administered: 07/28/2016 4:52:00 PM The following Medications were prescribed to the patient: Zofran (orally disintegrating tablets) 4 mg: take 1 orally every 6 hours as needed for nausea and vomiting. Dispense ten (10). No refill. Substitution is permissible. -- Reji Johnston Dr.
== END 2016-07-28 17:22 | disposition home or self-care (01) ==
LOC: ED SRH 16:35
DX: S80.811A Abrasion, right lower leg, initial encounter (principal); W01.110A Fall on same level from slipping, tripping and stumbling with subsequent striking against sharp glass, initial encounter; Y93.31 Activity, mountain climbing, rock climbing and wall climbing; Y99.9 Unspecified external cause status; Y92.828 Other wilderness area as the place of occurrence of the external cause; Z79.899 Other long term (current) drug therapy; Z88.6 Allergy status to analgesic agent

== ENCOUNTER 2016-08-16 19:05 | Emergency (ER) | payer OTHER ==
--- NOTE | 2016-08-16 19:54 | ED CLINICAL REPORT ---
Clinical Report - Physicians/Mid Levels [facility] [address] [place] [address] 08/16/2016 19:05 Patient: AFSHIN LUCIA Time Seen: 19:18; initial patient contact, initial documentation, patient care assumed. Arrived- By private vehicle. Historian- patient. HISTORY OF PRESENT ILLNESS Chief Complaint: BACK PAIN and CHRONIC BACK PAIN. It is described as being in the area of the mid lumbar spine and lower lumbar spine. The quality is noted to be "pain" and similar to prior episodes. Onset- years ago and it is still present. No bladder dysfunction or bowel dysfunction. Sensory loss involving the right foot and left foot (tingling). Motor loss (weakness). Additional history - pt admitted to not having a dr. Patient denies an injury but injury to the head or neck. No other injury. Similar symptoms previously: Chronically, as bad. Recent medical care: The patient was seen recently in the emergency department. ( was at [facility] earlier today, states for his shoulder pain not back pain, pt did not give this info freely until questioned about it, info was on his negro report). REVIEW OF SYSTEMS No fever, difficulty with urination, urinary frequency, hematuria or difficulty breathing. No chest pain or abdominal pain. All systems otherwise negative, except as recorded above. PAST HISTORY See nurses notes. The patient has had prior back pain. PROBLEMS: Abrasion(s). PTSD. Knee Injury. --19:24 Sofiya Viera R.N. ADDITIONAL SURGERIES: Back Surgery. Wrist surgery. --19:24 Sofyia Viera R.N. SOCIAL HISTORY Never smoker. No alcohol use or drug use. No recent travel. Is a local resident. FAMILY HISTORY Negative. ADDITIONAL NOTES The nursing notes have been reviewed with agreement regarding the chief complaint, HPI, ROS, PMH and patient medications and allergies. PHYSICAL EXAM Vital Signs: 08/16/2016 19:15 BP: 148/85. HR: 87. RR: 16. O2 saturation: 100%. Temp: 98.2 F. Pain level now: 8/10. Have been reviewed as normal and appear to be correct. Appearance: Alert. No acute distress. HEENT: Normal external inspection. Eyes: Pupils equal, round and reactive to light. Neck: Normal inspection. Neck nontender. Painless ROM. CVS: Heart sounds normal. Pulses normal. Respiratory: No respiratory distress. Breath sounds normal. Abdomen: No visible injury. Soft and nontender. Back: Normal inspection. No tenderness. Painless ROM. Skin: Skin warm and dry. Normal skin color. No rash. Normal skin turgor. Extremities: Extremities exhibit normal ROM. Extremities nontender. Neuro: Oriented X 3. Mood/affect normal. No motor deficit. No sensory deficit. PROGRESS AND PROCEDURES Course of Care: pt has long negro, with recommendations for no controlled substances, frequent rx from different providers, last rx 07/23 hydrocodone #15, and #38 er visits, see report for full details tx options discussed with pt, pt aware that no narcs or controlled substances would be given, offered toradol injection here but pt declined stating he did not like shots, and he would just take rx, agreed to do steroids. Patient counseled in person regarding the patient's stable condition and diagnosis. Differential Diagnosis: I considered Musculo-skeletal strain, contusion, retroperitoneal hematoma, disk protrusion, facet syndrome, sacroiliac joint strain, sciatica, osteoarthritis, lumbar spondylosis, spinal stenosis, ankylosing spondylitis, sacroiliac joint inflammation, pyelonephritis, referred pain and ureterolithiasis as a possible cause of back pain in this patient. This is a partial list of diagnoses considered. (substance abuse, chronic pain issues, psych). Above considerations are based on history and physical exam. Differential diagnosis was discussed with patient. Disposition: Discharged home in good and unchanged condition (19:54). Condition: good and stable. CLINICAL IMPRESSION Chronic nontraumatic lumbar back pain. Chronic substance abuse- narcotics. INSTRUCTIONS Warnings: GENERAL WARNINGS: Return or contact your physician immediately if your condition worsens or changes unexpectedly, if not improving as expected, or if other problems arise. SPECIFICALLY, return if you develop incontinence of urine (loss of bladder control). Prescription Medications: Medrol Dosepak: take according to package directions. Dispense one (1) dosepak. No refills. Substitution is permissible. Follow-up: Follow up with your doctor in about one week as needed. Call for an appointment. Summary of care provided to patient. Understanding of the discharge instructions verbalized by patient. (Electronically signed by Collette Key A.R.N.P. 08/16/2016 20:14)
--- NOTE | 2016-08-16 19:54 | ED NURSING NOTES ---
Clinical Report - Nurses [facility] [address] [place] [address] 08/16/2016 19:05 Patient: AFSHIN LUCIA TRIAGE Triage time 1920 PM. Acuity: LEVEL 5. Chief Complaint: BACK PAIN. Alert. No acute distress. SEPSIS SCREEN: Sepsis Screen. Negative (no infection suspected/documented). --19:29 Sofiya Viera R.N. 19:15 08/16/16. BP: 148/85. HR: 87. RR: 16. O2 saturation: 100% on room air. Temp: 98.2 F (oral). Pain level now: 12/20. --19:29 Sofiya Viera R.N. Weight: 83.9 kg stated. Height/Length: 66 inches Per Patient. BMI: 29.9. --19:21 Sofiya Viera R.N. Medications Gabapentin Oral 500 mg , 2x a day as needed. Tylenol Oral. --19:24 Sofiya Viera R.N. Allergies Ketorolac. Methocarbamol. NSAIDs. --19:24 Sofiya Viera R.N. Medication/allergy information source: the patient. --19:29 Sofiya Viera R.N. History Arrived by private vehicle. Historian: patient. Primary physician ([facility]). ( Pt states having back pain since this morning, this is an ongoing problem since his back surgery, pt states unable to walk right or sit up right. Here to "see what else is going on"). This started today. He has had weakness, tingling, and trouble walking. He has had moderate right extremity pain. No history of recent trauma. No numbness or fever. 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 (aleve,). PAST MEDICAL HX: Tetanus status: unknown. Immunizations: status is unknown. SOCIAL HX: Never smoker. No alcohol use or drug use. No infectious disease exposure. ABUSE ASSESSMENT: No report of abuse. FALL RISK ASSESSMENT: Fall risk assessment completed. No fall risk identified. NUTRITIONAL RISK ASSESSMENT: The nutritional risk assessment revealed no deficiencies. FUNCTIONAL ASSESSMENT: Functional assessment: no impairments noted. LEARNING NEEDS ASSESSMENT: The learning needs assessment revealed no barriers. SKIN INTEGRITY ASSESSMENT: Skin integrity risk assessment completed. No skin integrity risk identified. -- Sofiya Viera R.N. PROBLEMS: Abrasion(s). PTSD. Knee Injury. -- Sofiya Viera R.N. ADDITIONAL SURGERIES: Back Surgery. Wrist surgery. -- Sofiya Viera R.N. Interventions ID band on patient. -- Sofiya Viera R.N. PHYSICAL ASSESSMENT Ambulatory to room. GENERAL / NEURO / PSYCH: Alert. Oriented X 4. Appears in no acute distress. He has had pre-existing intermittent, pain-related numbness with tingling. RESPIRATORY: Respirations not labored. EXTREMITIES: Limited ROM present. ROM of extremities within normal limits. BACK: Normal inspection of the neck and back. Limited ROM of the back. No neck or back tenderness. Vertebral point tenderness over the lumbar spine. -- Sofiya Viera R.N. NURSING PROGRESS NOTES The initial plan of care for this patient has been created This plan of care was discussed with the patient. Patient refused to place gown on. Reassurance given. Two patient identifiers checked. Call light placed in reach. Side rails up x 1. Bed placed in lowest position. Brakes of bed on. -- Sofiya Viera R.N. DISPOSITION / DISCHARGE Departure time: 1999 PM. Condition at departure: stable. The goals identified in the patient's plan of care were met. No learning barriers present. Discharge instructions provided and reviewed with the patient. Reviewed warnings (Peewee report). Reviewed medication(s) side effects, precautions, dosing and course information. Prescription(s) given to the patient. Activity restrictions (rest) reviewed. Patient verbalized understanding. Written instructions provided in Latvian. ( Pt spoken to by PATTI Key about Peewee report, what it entails and why we cannot prescribed anything for pain in narcotic form, pt did state that another doctor had mention it, but at first he pretended not to be aware of report.). The patient was discharged by the nurse practitioner. He was discharged home and unaccompanied at time of discharge. He left the Emergency Department ambulatory and via private vehicle. Patient driving. FALL RISK ASSESSMENT: Fall risk assessment completed. No fall risk identified. --22:35 Sofiya Viera R.N. 22:36 08/16/16. BP: unable to obtain. HR: unable to obtain. RR: unable to obtain. O2 saturation: unable to obtain. Temp: unable to obtain. Pain level now unable to obtain. Additional comments: pt did refused to get vs again prior to discharge. --22:36 Sofiya Viera R.N. Locked/Released at 08/16/2016 22:37 by Sofiya Viera R.N.
--- NOTE | 2016-08-16 19:54 | ED NURSING NOTES ---
Clinical Report - Nurses [facility] [address] [place] [address] 08/16/2016 19:05 Patient: AFSHIN LUCIA TRIAGE Triage time 1920 PM. Acuity: LEVEL 5. Chief Complaint: BACK PAIN. Alert. No acute distress. SEPSIS SCREEN: Sepsis Screen. Negative (no infection suspected/documented). --19:29 Sofiya Viera R.N. 19:15 08/16/16. BP: 148/85. HR: 87. RR: 16. O2 saturation: 100% on room air. Temp: 98.2 F (oral). Pain level now: 12/20. --19:29 Sofiya Viera R.N. Weight: 83.9 kg stated. Height/Length: 66 inches Per Patient. BMI: 29.9. --19:21 Sofiya Viera R.N. Medications Gabapentin Oral 500 mg , 2x a day as needed. Tylenol Oral. --19:24 Sofiya Viera R.N. Allergies Ketorolac. Methocarbamol. NSAIDs. --19:24 Sofiya Viera R.N. Medication/allergy information source: the patient. --19:29 Sofiya Viera R.N. History Arrived by private vehicle. Historian: patient. Primary physician ([facility]). ( Pt states having back pain since this morning, this is an ongoing problem since his back surgery, pt states unable to walk right or sit up right. Here to "see what else is going on"). This started today. He has had weakness, tingling, and trouble walking. He has had moderate right extremity pain. No history of recent trauma. No numbness or fever. 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 PAST MEDICAL HX: Tetanus status: unknown. Immunizations: status is unknown. SOCIAL HX: Never smoker. No alcohol use or drug use. No infectious disease exposure. ABUSE ASSESSMENT: No report of abuse. FALL RISK ASSESSMENT: Fall risk assessment completed. No fall risk identified. NUTRITIONAL RISK ASSESSMENT: The nutritional risk assessment revealed no deficiencies. FUNCTIONAL ASSESSMENT: Functional assessment: no impairments noted. LEARNING NEEDS ASSESSMENT: The learning needs assessment revealed no barriers. SKIN INTEGRITY ASSESSMENT: Skin integrity risk assessment completed. No skin integrity risk identified. -- Sofiya Viera R.N. PROBLEMS: Abrasion(s). PTSD. Knee Injury. -- Sofiya Viera R.N. ADDITIONAL SURGERIES: Back Surgery. Wrist surgery. -- Sofiya Viera R.N. Interventions ID band on patient. -- Sofiya Viera R.N. PHYSICAL ASSESSMENT Ambulatory to room. GENERAL / NEURO / PSYCH: Alert. Oriented X 4. Appears in no acute distress. He has had pre-existing intermittent, pain-related numbness with tingling. RESPIRATORY: Respirations not labored. EXTREMITIES: Limited ROM present. ROM of extremities within normal limits. BACK: Normal inspection of the neck and back. Limited ROM of the back. No neck or back tenderness. Vertebral point tenderness over the lumbar spine. -- Sofiya Viera R.N. NURSING PROGRESS NOTES The initial plan of care for this patient has been created This plan of care was discussed with the patient. Patient refused to place gown on. Reassurance given. Two patient identifiers checked. Call light placed in reach. Side rails up x 1. Bed placed in lowest position. Brakes of bed on. -- Sofiya Viera R.N. DISPOSITION / DISCHARGE Departure time: 1999 PM. Condition at departure: stable. The goals identified in the patient's plan of care were met. No learning barriers present. Discharge instructions provided and reviewed with the patient. Reviewed warnings (Peewee report). Reviewed medication(s) side effects, precautions, dosing and course information. Prescription(s) given to the patient. Activity restrictions (rest) reviewed. Patient verbalized understanding. Written instructions provided in Malay. ( Pt spoken to by PATTI Key about Peewee report, what it entails and why we cannot prescribed anything for pain in narcotic form, pt did state that another doctor had mention it, but at first he pretended not to be aware of report.). The patient was discharged by the nurse practitioner. He was discharged home and unaccompanied at time of discharge. He left the Emergency Department ambulatory and via private vehicle. Patient driving. FALL RISK ASSESSMENT: Fall risk assessment completed. No fall risk identified. --22:35 Sofiya Viera R.N. 22:36 08/16/16. BP: unable to obtain. HR: unable to obtain. RR: unable to obtain. O2 saturation: unable to obtain. Temp: unable to obtain. Pain level now unable to obtain. Additional comments: pt did refused to get vs again prior to discharge. --22:36 Sofiya Viera R.N. Locked/Released at 08/16/2016 22:37 by Sofiya Viera R.N.
--- NOTE | 2016-08-16 22:37 | ED MAR SUMMARY ---
..... Medication Administration Record [facility] [address] [place], [place] [id number] Patient: AFSHIN LUCIA Visit ID: [id number] 31y, M Weight: 83.9 kg Height/Length: 66 in BMI: 29.9 ALLERGIES: Ketorolac, Methocarbamol, NSAIDs
--- NOTE | 2016-08-16 22:37 | ED DISCHARGE INSTRUCTIONS ---
Patient: AFSHIN LUCIA General Instructions [facility] VisitID: [id number] [place] [address] 31y, M Registration Date/Time: 08/16/2016 Chronic nontraumatic lumbar back pain. Chronic substance abuse- narcotics. INSTRUCTIONS Warnings: GENERAL WARNINGS: Return or contact your physician immediately if your condition worsens or changes unexpectedly, if not improving as expected, or if other problems arise. SPECIFICALLY, return if you develop incontinence of urine (loss of bladder control). Prescription Medications: Medrol Dosepak: take according to package directions. Dispense one (1) dosepak. No refills. Substitution is permissible. Follow-up: Follow up with your doctor in about one week as needed. Call for an appointment. Summary of care provided to patient. Understanding of the discharge instructions verbalized by patient. ADDITIONAL INFORMATION Back Pain [Acute Or Chronic] Back pain is usually caused by an injury to the muscles or ligaments of the spine. Sometimes the disks that separate each bone in the spine may bulge and cause pain by pressing on a nearby nerve. Back pain may also appear after a sudden twisting/bending force (such as in a car accident), after a simple awkward movement, or lifting something heavy with poor body positioning. In either case, muscle spasm is often present and adds to the pain. Acute back pain usually gets better in one to two weeks. Back pain related to disk disease, arthritis in the spinal joints or spinal stenosis (narrowing of the spinal canal) can become chronic and last for months or years. Unless you had a physical injury (for example, a car accident or fall) X-rays are usually not ordered for the initial evaluation of back pain. If pain continues and does not respond to medical treatment, x-rays and other tests may be performed at a later time. Home Care: You may need to stay in bed the first few days. But, as soon as possible, begin sitting or walking to avoid problems with prolonged bed rest (muscle weakness, worsening back stiffness and pain, blood clots in the legs). When in bed, try to find a position of comfort. A firm mattress is best. Try lying flat on your back with pillows under your knees. You can also try lying on your side with your knees bent up towards your chest and a pillow between your knees. Avoid prolonged sitting. This puts more stress on the lower back than standing or walking. During the first two days after injury, apply an ICE PACK to the painful area for 20 minutes every 2-4 hours. This will reduce swelling and pain. HEAT (hot shower, hot bath or heating pad) works well for muscle spasm. You can start with ice, then switch to heat after two days. Some patients feel best alternating ice and heat treatments. Use the one method that feels the best to you. You may use acetaminophen (Tylenol) or ibuprofen (Motrin, Advil) to control pain, unless another pain medicine was prescribed. [NOTE: If you have chronic liver or kidney disease or ever had a stomach ulcer or GI bleeding, talk with your doctor before using these medicines.] Be aware of safe lifting methods and do not lift anything over 15 pounds until all the pain is gone. Follow Up with your doctor or this facility if your symptoms do not start to improve after one week. Physical therapy may be needed. [NOTE: If X-rays were taken, they will be reviewed by a radiologist. You will be notified of any new findings that may affect your care.] Get Prompt Medical Attention if any of the following occur: Pain becomes worse or spreads to your legs Weakness or numbness in one or both legs Loss of bowel or bladder control Numbness in the groin or genital area Opiate Abuse Use and abuse of heroin or prescription pain medicines (Vicodin, codeine) may lead to physical ADDICTION or psychological DEPENDENCE. Once this occurs, you are at greater risk for any of the following: - Craving for the drug and unable to stop using the drug even though you think you want to stop (psychological dependence) - Drug withdrawal symptoms if you stop taking the drug (physical addiction) - Loss of your job or your family - Arrest, conviction and group home sentence for possession of an illegal substance or for driving under the influence of such a substance - Accidental injuries to yourself or others while you are under the influence of the drug (in a car or at home). - HIV infection (much greater risk if you use IV drugs) - Other sexually transmitted diseases (Herpes, chlamydia, gonorrhea and others) - Severe and fatal infection of the heart valves (if you use IV drugs) - Stroke, heart attack, hepatitis B or C, kidney failure - from overdose Home Care: 1) Admit you have a drug problem. Ask for help from your family and close friends. 2) Seek professional help. This could be individual psychotherapy, counseling, or a drug treatment program (outpatient or residential). 3) Join a self-help group for drug abuse. 4) Avoid friends who abuse drugs themselves or tempt you to continue your habit 5) Eat a balanced diet and begin a regular exercise program. Follow Up with your doctor or as advised by our staff. Contact one of the resources below for help. National [place] on Alcoholism and Drug Dependence, www.ncadd.org 402-808-HXJR Narcotics Anonymous (check your phone book for a local listing or call 182-857-6874) www.na.org National Alcohol and Substance Abuse Information Center (for referral to treatment programs) Www.[employer] 324-904-5840 Get Prompt Medical Attention if any of the following occur: -- Symptoms of withdrawal (agitation, anxiety, trembling, sweats, diarrhea, unable to sleep) -- Chest pain -- Unexplained fever over 100.4 F (38.0 C) -- Excessive drowsiness or inability to be awakened -- Slow breathing under 8 breaths per minute -- Shortness of breath or cough with colored sputum -- Redness, swelling or tenderness at an injection site Pain Management: Chronic You have a painful condition that has required frequent use of narcotic-type pain medicine. We would like to see that you receive the best possible care for your problem. To achieve this, you must have apersonal physician who can supervise a treatment plan for you. You may locate a personal physician on your own or contact one of the doctors whose name has been given to you. If your physician determines that you need to visit the ER for pain control, that doctor should provide you with a PAIN CONTRACT. This is a letter from your doctor which describes what pain medicine you may receive, how much and how often. You sign it agreeing to the terms of the treatment plan. Bring this with you each time you come to this facility. It will help the Emergency Physician provide the proper treatment for you with minimal delay. Please Note: IN THE FUTURE YOU WILL NOT BE ABLE TO RECEIVE Narcotic Pain Medicine From This Facility Without A Pain Contract Or Telephone Approval From Your Personal Physician. Methylprednisolone Oral tablet What is this medicine? METHYLPREDNISOLONE (meth ill pred NISS [place] lone) is a corticosteroid. It is commonly used to treat inflammation of the skin, joints, lungs, and other organs. Common conditions treated include asthma, allergies, and arthritis. It is also used for other conditions, such as blood disorders and diseases of the adrenal glands. How should I use this medicine? Take this medicine by mouth with a drink of water. Follow the directions on the prescription label. Take it with food or milk to avoid stomach upset. If you are taking this medicine once a day, take it in the morning. Do not take more medicine than you are told to take. Do not suddenly stop taking your medicine because you may develop a severe reaction. Your doctor will tell you how much medicine to take. If your doctor wants you to stop the medicine, the dose may be slowly lowered over time to avoid any side effects. Talk to your professor of communication and writing regarding the use of this medicine in children. Special care may be needed. What side effects may I notice from receiving this medicine? Side effects that you should report to your doctor or health medicare biller as soon as possible: allergic reactions like skin rash, itching or hives, swelling of the face, lips, or tongue eye pain, decreased or blurred vision, or bulging eyes fever, sore throat, sneezing, cough, or other signs of infection, wounds that will not heal increased thirst mental depression, mood swings, mistaken feelings of self importance or of being mistreated pain in hips, back, ribs, arms, shoulders, or legs swelling of the ankles, feet, hands trouble passing urine or change in the amount of urine Side effects that usually do not require medical attention (report to your doctor or health medicare biller if they continue or are bothersome): confusion, excitement, restlessness headache nausea, vomiting skin problems, acne, thin and shiny skin weight gain What may interact with this medicine? Do not take this medicine with any of the following medications: mifepristone This medicine may also interact with the following medications: tacrolimus vaccines warfarin What if I miss a dose? If you miss a dose, take it as soon as you can. If it is almost time for your next dose, talk to your doctor or health medicare biller. You may need to miss a dose or take an extra dose. Do not take double or extra doses without advice. Where should I keep my medicine? Keep out of the reach of children. Store at room temperature between 20 and 25 degrees C (68 and 77 degrees F). Throw away any unused medicine after the expiration date. What should I tell my health care provider before I take this medicine? They need to know if you have any of these conditions: [place]'s syndrome diabetes glaucoma heart problems or disease high blood pressure infection such as herpes, measles, tuberculosis, or chickenpox kidney disease liver disease mental problems myasthenia gravis osteoporosis seizures stomach ulcer or intestine disease including colitis and diverticulitis thyroid problem an unusual or allergic reaction to lactose, methylprednisolone, other medicines, foods, dyes, or preservatives or trying to get breast-feeding What should I watch for while using this medicine? Visit your doctor or health medicare biller for regular checks on your progress. If you are taking this medicine for a long time, carry an identification card with your name and address, the type and dose of your medicine, and your doctor's name and address. The medicine may increase your risk of getting an infection. Stay away from people who are sick. Tell your doctor or health medicare biller if you are around anyone with measles or chickenpox. If you are going to have surgery, tell your doctor or health medicare biller that you have taken this medicine within the last twelve months. Ask your doctor or health medicare biller about your diet. You may need to lower the amount of salt you eat. The medicine can increase your blood sugar. If you are a diabetic check with your doctor if you need help adjusting the dose of your diabetic medicine. You have been given the following additional information: Back Pain (Acute Or Chronic) Opiate Abuse Drug Seeking Behavior, Pain Contract Required Methylprednisolone Oral tablet (Electronically signed by Collette Key A.R.N.P. 08/16/2016 20:14)
--- NOTE | 2016-08-16 22:37 | ED MED RECONCILIATION SUMMARY ---
Patient: AFSHIN LUCIA Medication Reconciliation Report [facility] VisitID: [id number] [address] [place] [address] 31y, M Registration Date/Time: 08/16/2016 Weight: 83.9 kg Height/Length: 66 in. BMI: 29.9 ALLERGIES: Ketorolac, Methocarbamol, NSAIDs The patient's Home Medications are listed below: THE FOLLOWING MEDICATIONS NEED TO BE RECONCILED: Gabapentin Oral 500 mg , 2x a day Tylenol Oral The source(s) of the original Home Medication information: patient The following Medications were given to the patient in the Emergency Department: None. The following Medications were prescribed to the patient: Medrol Dosepak: take according to package directions. Dispense one (1) dosepak. No refills. Substitution is permissible. -- Collette Key A.R.N.P.
--- NOTE | 2016-08-16 22:37 | ED DISCHARGE INSTRUCTIONS ---
Patient: AFSHIN LUCIA General Instructions [facility] VisitID: [id number] [place] [address] 31y, M Registration Date/Time: 08/16/2016 Chronic nontraumatic lumbar back pain. Chronic substance abuse- narcotics. INSTRUCTIONS Warnings: GENERAL WARNINGS: Return or contact your physician immediately if your condition worsens or changes unexpectedly, if not improving as expected, or if other problems arise. SPECIFICALLY, return if you develop incontinence of urine (loss of bladder control). Prescription Medications: Medrol Dosepak: take according to package directions. Dispense one (1) dosepak. No refills. Substitution is permissible. Follow-up: Follow up with your doctor in about one week as needed. Call for an appointment. Summary of care provided to patient. Understanding of the discharge instructions verbalized by patient. ADDITIONAL INFORMATION Back Pain [Acute Or Chronic] Back pain is usually caused by an injury to the muscles or ligaments of the spine. Sometimes the disks that separate each bone in the spine may bulge and cause pain by pressing on a nearby nerve. Back pain may also appear after a sudden twisting/bending force (such as in a car accident), after a simple awkward movement, or lifting something heavy with poor body positioning. In either case, muscle spasm is often present and adds to the pain. Acute back pain usually gets better in one to two weeks. Back pain related to disk disease, arthritis in the spinal joints or spinal stenosis (narrowing of the spinal canal) can become chronic and last for months or years. Unless you had a physical injury (for example, a car accident or fall) X-rays are usually not ordered for the initial evaluation of back pain. If pain continues and does not respond to medical treatment, x-rays and other tests may be performed at a later time. Home Care: You may need to stay in bed the first few days. But, as soon as possible, begin sitting or walking to avoid problems with prolonged bed rest (muscle weakness, worsening back stiffness and pain, blood clots in the legs). When in bed, try to find a position of comfort. A firm mattress is best. Try lying flat on your back with pillows under your knees. You can also try lying on your side with your knees bent up towards your chest and a pillow between your knees. Avoid prolonged sitting. This puts more stress on the lower back than standing or walking. During the first two days after injury, apply an ICE PACK to the painful area for 20 minutes every 2-4 hours. This will reduce swelling and pain. HEAT (hot shower, hot bath or heating pad) works well for muscle spasm. You can start with ice, then switch to heat after two days. Some patients feel best alternating ice and heat treatments. Use the one method that feels the best to you. You may use acetaminophen (Tylenol) or ibuprofen (Motrin, Advil) to control pain, unless another pain medicine was prescribed. [NOTE: If you have chronic liver or kidney disease or ever had a stomach ulcer or GI bleeding, talk with your doctor before using these medicines.] Be aware of safe lifting methods and do not lift anything over 15 pounds until all the pain is gone. Follow Up with your doctor or this facility if your symptoms do not start to improve after one week. Physical therapy may be needed. [NOTE: If X-rays were taken, they will be reviewed by a radiologist. You will be notified of any new findings that may affect your care.] Get Prompt Medical Attention if any of the following occur: Pain becomes worse or spreads to your legs Weakness or numbness in one or both legs Loss of bowel or bladder control Numbness in the groin or genital area Opiate Abuse Use and abuse of heroin or prescription pain medicines (Vicodin, codeine) may lead to physical ADDICTION or psychological DEPENDENCE. Once this occurs, you are at greater risk for any of the following: - Craving for the drug and unable to stop using the drug even though you think you want to stop (psychological dependence) - Drug withdrawal symptoms if you stop taking the drug (physical addiction) - Loss of your job or your family - Arrest, conviction and custodial sentence for possession of an illegal substance or for driving under the influence of such a substance - Accidental injuries to yourself or others while you are under the influence of the drug (in a car or at home). - HIV infection (much greater risk if you use IV drugs) - Other sexually transmitted diseases (Herpes, chlamydia, gonorrhea and others) - Severe and fatal infection of the heart valves (if you use IV drugs) - Stroke, heart attack, hepatitis B or C, kidney failure - from overdose Home Care: 1) Admit you have a drug problem. Ask for help from your family and close friends. 2) Seek professional help. This could be individual psychotherapy, counseling, or a drug treatment program (outpatient or residential). 3) Join a self-help group for drug abuse. 4) Avoid friends who abuse drugs themselves or tempt you to continue your habit 5) Eat a balanced diet and begin a regular exercise program. Follow Up with your doctor or as advised by our staff. Contact one of the resources below for help. National [place] on Alcoholism and Drug Dependence, www.ncadd.org 433-678-DQLJ Narcotics Anonymous (check your phone book for a local listing or call 371-364-3178) www.na.org National Alcohol and Substance Abuse Information Center (for referral to treatment programs) Www.[employer] 514-726-1890 Get Prompt Medical Attention if any of the following occur: -- Symptoms of withdrawal (agitation, anxiety, trembling, sweats, diarrhea, unable to sleep) -- Chest pain -- Unexplained fever over 100.4 F (38.0 C) -- Excessive drowsiness or inability to be awakened -- Slow breathing under 8 breaths per minute -- Shortness of breath or cough with colored sputum -- Redness, swelling or tenderness at an injection site Pain Management: Chronic You have a painful condition that has required frequent use of narcotic-type pain medicine. We would like to see that you receive the best possible care for your problem. To achieve this, you must have apersonal physician who can supervise a treatment plan for you. You may locate a personal physician on your own or contact one of the doctors whose name has been given to you. If your physician determines that you need to visit the ER for pain control, that doctor should provide you with a PAIN CONTRACT. This is a letter from your doctor which describes what pain medicine you may receive, how much and how often. You sign it agreeing to the terms of the treatment plan. Bring this with you each time you come to this facility. It will help the Emergency Physician provide the proper treatment for you with minimal delay. Please Note: IN THE FUTURE YOU WILL NOT BE ABLE TO RECEIVE Narcotic Pain Medicine From This Facility Without A Pain Contract Or Telephone Approval From Your Personal Physician. Methylprednisolone Oral tablet What is this medicine? METHYLPREDNISOLONE (meth ill pred NISS [place] lone) is a corticosteroid. It is commonly used to treat inflammation of the skin, joints, lungs, and other organs. Common conditions treated include asthma, allergies, and arthritis. It is also used for other conditions, such as blood disorders and diseases of the adrenal glands. How should I use this medicine? Take this medicine by mouth with a drink of water. Follow the directions on the prescription label. Take it with food or milk to avoid stomach upset. If you are taking this medicine once a day, take it in the morning. Do not take more medicine than you are told to take. Do not suddenly stop taking your medicine because you may develop a severe reaction. Your doctor will tell you how much medicine to take. If your doctor wants you to stop the medicine, the dose may be slowly lowered over time to avoid any side effects. Talk to your veneer grader regarding the use of this medicine in children. Special care may be needed. What side effects may I notice from receiving this medicine? Side effects that you should report to your doctor or health senior care manager as soon as possible: allergic reactions like skin rash, itching or hives, swelling of the face, lips, or tongue eye pain, decreased or blurred vision, or bulging eyes fever, sore throat, sneezing, cough, or other signs of infection, wounds that will not heal increased thirst mental depression, mood swings, mistaken feelings of self importance or of being mistreated pain in hips, back, ribs, arms, shoulders, or legs swelling of the ankles, feet, hands trouble passing urine or change in the amount of urine Side effects that usually do not require medical attention (report to your doctor or health senior care manager if they continue or are bothersome): confusion, excitement, restlessness headache nausea, vomiting skin problems, acne, thin and shiny skin weight gain What may interact with this medicine? Do not take this medicine with any of the following medications: mifepristone This medicine may also interact with the following medications: tacrolimus vaccines warfarin What if I miss a dose? If you miss a dose, take it as soon as you can. If it is almost time for your next dose, talk to your doctor or health senior care manager. You may need to miss a dose or take an extra dose. Do not take double or extra doses without advice. Where should I keep my medicine? Keep out of the reach of children. Store at room temperature between 20 and 25 degrees C (68 and 77 degrees F). Throw away any unused medicine after the expiration date. What should I tell my health care provider before I take this medicine? They need to know if you have any of these conditions: [place]'s syndrome diabetes glaucoma heart problems or disease high blood pressure infection such as herpes, measles, tuberculosis, or chickenpox kidney disease liver disease mental problems myasthenia gravis osteoporosis seizures stomach ulcer or intestine disease including colitis and diverticulitis thyroid problem an unusual or allergic reaction to lactose, methylprednisolone, other medicines, foods, dyes, or preservatives or trying to get breast-feeding What should I watch for while using this medicine? Visit your doctor or health senior care manager for regular checks on your progress. If you are taking this medicine for a long time, carry an identification card with your name and address, the type and dose of your medicine, and your doctor's name and address. The medicine may increase your risk of getting an infection. Stay away from people who are sick. Tell your doctor or health senior care manager if you are around anyone with measles or chickenpox. If you are going to have surgery, tell your doctor or health senior care manager that you have taken this medicine within the last twelve months. Ask your doctor or health senior care manager about your diet. You may need to lower the amount of salt you eat. The medicine can increase your blood sugar. If you are a diabetic check with your doctor if you need help adjusting the dose of your diabetic medicine. You have been given the following additional information: Back Pain (Acute Or Chronic) Opiate Abuse Drug Seeking Behavior, Pain Contract Required Methylprednisolone Oral tablet (Electronically signed by Collette Key A.R.N.P. 08/16/2016 20:14)
--- NOTE | 2016-08-16 22:37 | ED MAR SUMMARY ---
..... Medication Administration Record [facility] [address] [place], [place] [id number] Patient: AFSHIN LUCIA Visit ID: [id number] 31y, M Weight: 83.9 kg Height/Length: 66 in BMI: 29.9 ALLERGIES: Ketorolac, Methocarbamol, NSAIDs
--- NOTE | 2016-08-16 22:37 | ED MED RECONCILIATION SUMMARY ---
Patient: AFSHIN LUCIA Medication Reconciliation Report [facility] VisitID: [id number] [address] [place] [address] 31y, M Registration Date/Time: 08/16/2016 Weight: 83.9 kg Height/Length: 66 in. BMI: 29.9 ALLERGIES: Ketorolac, Methocarbamol, NSAIDs The patient's Home Medications are listed below: THE FOLLOWING MEDICATIONS NEED TO BE RECONCILED: Gabapentin Oral 500 mg , 2x a day Tylenol Oral The source(s) of the original Home Medication information: patient The following Medications were given to the patient in the Emergency Department: None. The following Medications were prescribed to the patient: Medrol Dosepak: take according to package directions. Dispense one (1) dosepak. No refills. Substitution is permissible. -- Collette Key A.R.N.P.
== END 2016-08-16 20:00 | disposition home or self-care (01) ==
LOC: ED SRH 19:05
DX: M54.5 Low back pain (principal); G89.29 Other chronic pain; F11.10 Opioid abuse, uncomplicated; Z88.6 Allergy status to analgesic agent; Z88.8 Allergy status to other drugs, medicaments and biological substances